=== PATIENT | female | born 1940 | race Caucasian/White ===

== ENCOUNTER 2022-12-19 12:16 | Outpatient (CLI) | payer MEDICARE | END 2022-12-19 12:17 | disposition home or self-care (01) | LOC: CSHULT 12:16 | PROVIDERS: ATTEND Registered Nurse | DX: N39.0 Urinary tract infection, site not specified (principal); N39.46 Mixed incontinence; N28.9 Disorder of kidney and ureter, unspecified | CPT/HCPCS: 74176; 76856 ==

== ENCOUNTER 2025-03-11 11:59 | Outpatient (CLI) | payer OTHER | END 2025-03-11 12:00 | disposition home or self-care (01) | LOC: CSHRAD 11:59 | DX: R06.02 Shortness of breath (principal) | CPT/HCPCS: 71046 ==

== ENCOUNTER 2025-04-05 12:17 | Outpatient (CLI) | payer OTHER | END 2025-04-05 12:18 | disposition home or self-care (01) | LOC: CSHCP 12:17 | PROVIDERS: ATTEND Internal Medicine Critical Care Medicine | DX: R06.00 Dyspnea, unspecified (principal); J84.9 Interstitial pulmonary disease, unspecified; I51.7 Cardiomegaly | CPT/HCPCS: 71250; 94060; 94664; 94726; 94729; 94760 ==